=== PATIENT | female | born 1995 | race African-American/Black ===

== ENCOUNTER 2017-10-28 01:06 | Outpatient (CLI) | payer MEDICAID ==
[2017-10-28 01:36] LABS: APPEARANCE,URINE SLIGHTLY-CLOUDY; BILIRUBIN,URINE NEGATIVE (NEGATIVE); COLOR,URINE STRAW; GLUCOSE, URINE NEGATIVE (NEGATIVE); KETONES,URINE NEGATIVE (NEGATIVE); LEUKOCYTE ESTERASE,URINE LARGE (NEGATIVE); NITRITE,URINE NEGATIVE (NEGATIVE); PROTEIN,URINE NEGATIVE (NEGATIVE); URINE SPECIFIC GRAVITY 1.001; UROBILINOGEN,URINE NEGATIVE mg/dL (<2.0)
[2017-10-28 02:08] LABS: URINE AMPHETAMINES SCREEN NEGATIVE; URINE BARBITURATES SCREEN NEGATIVE; URINE BENZODIAZEPINES SCREEN NEGATIVE; URINE COCAINE SCREEN NEGATIVE; URINE MARIJUANA (THC) SCREEN NEGATIVE; URINE METHADONE SCREEN NEGATIVE; URINE PHENCYCLIDINE SCREEN NEGATIVE
== END 2017-10-28 02:18 | disposition home or self-care (01) ==
LOC: LC 01:06
PROVIDERS: ATTEND Obstetrics & Gynecology
PROC: 4A1HXCZ Monitoring of Products of Conception, Cardiac Rate, External Approach (ICD-10-PCS; principal; 2017-10-28)
DX: O47.1 False labor at or after 37 completed weeks of gestation (principal); Z3A.39 39 weeks gestation of pregnancy
CPT/HCPCS: 59025; 80307; 81005

== ENCOUNTER 2017-10-31 04:59 | Inpatient (IN) | payer MEDICAID ==
--- NOTE | 2017-10-31 05:05 | Non Stress Test Report ---
Non Stress Test Datetime Report Generated by CPN: 10/31/2017 05:05 DEMOGRAPHIC Test Number: 1 EGA NST: 39.3 INDICATION Indication for Study: Ordered by Provider VITAL SIGNS Temperature - NST: 98.4 Pulse - NST: 74 RESP - NST: 16 NBPSYS NST: 106 NBPDIA NST: 59 URINE RESULTS Urine Protein, NST: Negative Urine Ketones - NST: Negative Urine Glucose - NST: Negative Urine Blood - NST: Positive MONITORING Monitor Explained: Monitor Explained; Test Explained; Patient Verbalized Understanding Time on Monitor: 10/28/2017 01:26 Time off Monitor: 10/28/2017 02:09 NST Duration: 43 NST INTERVENTIONS NST Interventions: None Physician Notified NST: Dr. Rodriguez BABY A: [id number] BABY A Movement : Present Contraction Frequency : 2-4 FHR Baseline : 150 Accelerations : 15X15 Decelerations : None Variability : Moderate 6-25bpm NST Review: Meets Criteria for Reactive NST NST Review and Verified By : JuanitaSujey Cerna RN NST Results: Reactive NST REPORT Report Trigger: Send Report
[2017-10-31 06:03] LABS: APPEARANCE,URINE CLEAR; BILIRUBIN,URINE NEGATIVE (NEGATIVE); COLOR,URINE YELLOW; GLUCOSE, URINE NEGATIVE (NEGATIVE); KETONES,URINE NEGATIVE (NEGATIVE); LEUKOCYTE ESTERASE,URINE LARGE (NEGATIVE); NITRITE,URINE NEGATIVE (NEGATIVE); PROTEIN,URINE NEGATIVE (NEGATIVE); URINE SPECIFIC GRAVITY 1.001; UROBILINOGEN,URINE NEGATIVE mg/dL (<2.0)
[2017-10-31] MEDS ORDERED: CEFAZOLIN 2 GM/D5W RTU 2 GM/50 ML RTUPB IV ONE (06:32)
[2017-10-31] MEDS ORDERED: CITRIC ACID/SODIUM CITRATE ORAL SOLN 15 ML UDCUP ONE (06:32)
[2017-10-31 06:33] LABS: URINE AMPHETAMINES SCREEN NEGATIVE; URINE BARBITURATES SCREEN NEGATIVE; URINE BENZODIAZEPINES SCREEN NEGATIVE; URINE COCAINE SCREEN NEGATIVE; URINE MARIJUANA (THC) SCREEN NEGATIVE; URINE METHADONE SCREEN NEGATIVE; URINE PHENCYCLIDINE SCREEN NEGATIVE
[2017-10-31] MEDS ORDERED: MORPHINE SULFATE 10 MG/ML INJ ONE (06:45)
[2017-10-31] MEDS ORDERED: FENTANYL CITRATE INJ/PF 100 MCG/2 ML AMPUL ONE (06:45)
[2017-10-31] MEDS ORDERED: OXYTOCIN 10 UNIT/ML VIAL ONE (06:58)
[2017-10-31] MEDS ORDERED: OXYTOCIN/NORMAL SALINE 20 UNIT/1,000 ML RTUINJ ONE (06:58)
[2017-10-31] MEDS ORDERED: METHYLERGONOVINE MALEATE INJ/PF 0.2 MG/1 ML AMPULE ONE (06:58)
[2017-10-31] MEDS ORDERED: MISOPROSTOL 0.2 MG TABLET ONE (06:58)
[2017-10-31] MEDS ORDERED: PROMETHAZINE HCL INJ 25 MG/1 ML VIAL IV PRN ×2 (07:00→07:08)
[2017-10-31] MEDS ORDERED: DIPHENHYDRAMINE HCL 50 MG/ML VIAL IV PRN (07:00)
[2017-10-31] MEDS ORDERED: ONDANSETRON HCL INJ/PF 4 MG/2 ML SDV IV PRN (07:00)
[2017-10-31] MEDS ORDERED: MEPERIDINE HCL/PF INJ 25 MG/1 ML DISP.SYRIN IV PRN (07:00)
[2017-10-31] MEDS ORDERED: MORPHINE SULFATE 10 MG/ML INJ IV PRN (07:00)
[2017-10-31] MEDS ORDERED: FENTANYL CITRATE INJ/PF 100 MCG/2 ML AMPUL IV PRN ×3 (07:00)
[2017-10-31] MEDS ORDERED: OXYTOCIN/NORMAL SALINE 20 UNIT/1,000 ML RTUINJ IV PRN (07:08)
[2017-10-31] MEDS ORDERED: DIPH/PERTUSS(ACELL)/TETANUS VAC/PF 0.5 ML SYR (>=10YO) IM PRN (07:08)
[2017-10-31] MEDS ORDERED: ACETAMINOPHEN 325 MG TABLET PO PRN (07:08)
[2017-10-31] MEDS ORDERED: MEASLES,MUMPS&RUBELLA VACC/PF 0.5 ML VIAL SUBCUT PRN (07:08)
[2017-10-31] MEDS ORDERED: HYDROMORPHONE HCL INJ/PF 2 MG/ML AMPULE IV PRN (07:08)
[2017-10-31] MEDS ORDERED: OXYCODONE-ACETAMINOPHEN 5-325 MG TABLET PO PRN (07:08)
[2017-10-31] MEDS ORDERED: SIMETHICONE 80 MG TAB.CHEW PO PRN (07:08)
--- NOTE | 2017-10-31 07:24 | OPERATIVE REPORT E ---
Operative Report NAME: YISEL OROZCO : 1995 AGE: 22Y DATE OF SURGERY: 10/31/2017 ROOM: LR200 PREOPERATIVE DIAGNOSES: 1. IUP AT TERM. 2. VAGINAL BLEEDING. 3. SUSPECTED ABRUPTIO PLACENTAE. POSTOPERATIVE DIAGNOSES: 1. IUP AT TERM. 2. VAGINAL BLEEDING. 3. SUSPECTED ABRUPTIO PLACENTAE. 4. NUCHAL CORD X1 AND BODY CORD X1. OPERATION: Primary low-transverse section. Delivery of viable female. Apgars of 8 and 9. Weight 6 pounds 8 ounces. SURGEON: Norma LEVINE M.D. ANESTHESIA: General. TISSUE REMOVED OR ALTERED: Placenta. PROCEDURE: The patient was placed in a supine position, prepped and draped. The Pfannenstiel incision was made; incision through the subcutaneous tissue and fascia *------*. The fascia was sharply and bluntly divided. Rectus muscles were bluntly and sharply divided. Parietal peritoneum was entered with sharp dissection. Uterus was nicked in the midline and extended bilaterally. Infant was then delivered through *------* incision, noted to have a cord around its body and around the neck. Cord was reduced and clamped and the baby was passed from the table. Placenta was manually extracted. Uterus closed in 2 layers: the first a running stitch 0 Vicryl; and the second, a Lembert stitch imbricating the first layer. Hemostasis was noted. The fascia was closed with 0 Vicryl and the skin was closed with subcu absorbable delaney. to [facility] in good condition. Patient had an x-ray that showed no foreign bodies and was taken to recovery room in good condition and urine remained clear throughout the procedure. DICTATING PHYSICIAN: Norma LEVINE M.D. [id number] PHY#: [id number] ID: [id number] JOB#: [id number] ACCT: [id number] cc:Norma LEVINE M.D. >
[2017-10-31] MEDS ORDERED: PROPOFOL INJ 200 MG/20 ML VIAL IV ONE (07:34)
[2017-10-31] MEDS ORDERED: ACETAMINOPHEN 100 ML IV ONE (07:41)
[2017-10-31 08:11] LABS: ABSOLUTE EOSINOPHILS # (AUTO) 0.1 10^3/uL (0.0-0.6); ABSOLUTE LYMPHOCYTES (AUTO) 2.5 10^3/uL (0.5-4.7); ABSOLUTE NEUT (AUTO) 8.3 10^3/uL (1.7-8.2); BASOPHILS % (AUTO) 0.3 % (0-2); EOSINOPHILS % (AUTO) 0.9 % (0-6); HEMATOCRIT 34.9 % (36.0-47.0); HEMOGLOBIN 11.5 g/dL (12.0-15.5); LYMPHOCYTES % (AUTO) 20.9 % (13-45); MEAN CORPUSCULAR HEMOGLOBIN 25.5 pg (27.0-33.4); MEAN CORPUSCULAR VOLUME 77 fl (80-97); MONOCYTES % (AUTO) 8.6 % (3-13); PLATELET COUNT 236 10^3/uL (150-450); RED BLOOD COUNT 4.52 10^6/uL (3.72-5.28); RED CELL DISTRIBUTION WIDTH 13.8 % (11.5-14.0); SEGMENTED NEUTROPHILS % (AUTO) 69.3 % (42-78); TOTAL CELLS COUNTED % (AUTO) 100 %
--- NOTE | 2017-10-31 08:12 | RADIOLOGY REPORT (SQ) ---
EXAM DESCRIPTION: KUB/ABDOMEN (SINGLE VIEW) COMPLETED DATE/TIME: 10/31/2017 7:33 am REASON FOR STUDY: stat c/s COMPARISON: None. NUMBER OF VIEWS: One view. TECHNIQUE: Supine radiographic image of the abdomen acquired. LIMITATIONS: None. FINDINGS: BOWEL GAS PATTERN: Nonspecific bowel-gas pattern. SOFT TISSUES: No gross mass or suggestion of organomegaly. No radiopaque foreign body. HARDWARE: No retained instruments seen. OTHER: Density in pelvis compatible with uterus. Vann catheter in bladder. No radiopaq ue densities to suggest retained sponge noted. Radiopaque tubing overlying left abdomen represent flores ction tubing by history. IMPRESSION: Nonspecific bowel-gas pattern. uterus. Vann catheter in place. TECHNICAL DOCUMENTATION: JOB ID: [id number] [employer]- All Rights Reserved
[2017-10-31] MEDS ORDERED: HYDROMORPHONE HCL INJ/PF 2 MG/ML AMPULE ONE (08:35)
--- NOTE | 2017-10-31 09:46 | Admission Physical ---
Datetime Report Generated by CPN: 10/31/2017 09:45 CURRENT ADMISSION Chief Complaint: Vaginal Bleeding Indication for Induction: Not Applicable Indication for Induction: Term, Intrauterine Admit Plan: Initiate Section Protocol ALLERGIES Medication Allergies: No Medication Allergies: No Known Allergies (10/31/2017) Medication Allergies: No Known Allergies (10/28/2017) Medication Allergies: No Known Allergies (07/21/2017) Latex: No Latex Allergies Food Allergies: None Environmental Allergies: None OBSTETRICAL HISTORY EDC: 11/01/2017 00:00 : 2 Para: 0 Term: 0 : 0 SAB: 0 IAB: 1 Livin Gestational Diabetes: No Rh Sensitization: No Incompetent Cervix: No TOMASZ: No Infertility: No ART Treatment: No Uterine Anomaly: No IUGR: No Hx Previous C/S: No Macrosomia: No Hx Loss/Stillborn: No Hx : No Placenta Previa/Abruption: No Depression/PP Depression: No PTL/PROM: No Post Hemorrhage: No Current Procedures: Ultrasound Obstetrical History Comments: g1-EAB at 17 weeks uterine aspiration g2-current SEE RECORDS Alcohol: No Marijuana : No Cocaine: No Other Illicit Drugs: No Cigarettes: Never Smoker. [id number] MEDICAL HISTORY Diabetes: No Blood Transfusion: No Pulmonary Disease (Asthma, TB): No Breast Disease: No Hypertension: No Medical Front Desk Coordinator Surgery: No Heart Disease: No Hosp/Surgery: Yes Autoimmune Disorder: No Anesthetic Complications: No Kidney Disease: No Abnormal Pap Smear: No Neuro/Epilepsy: No Psychiatric Disorders: No Other Medical Diseases: No Hepatitis/Liver Disease: No Significant Family History: No Varicosities/Phlebitis: No Trauma/Violence : No Thyroid Dysfunction: No Medical History Comments: underweight, surgery on bone around left eye INFECTIOUS HISTORY Gonorrhea: No Genital Herpes: No Chlamydia: No Tuberculosis: No Syphilis: No Hepatitis: No HIV/AIDS Exposure: No Rash or Viral Illness: No HPV: No PHYSICAL EXAM General: Normal HEENT: Normal Neurologic: Normal Thyroid: Normal Heart: Normal Lungs: Normal Breast: Deferred Back: Normal Abdomen: Normal Genitourinary Exam: Normal Extremities: Normal DTRs: Normal Pelvic Type: Adequate FETUS A EGA: 39.6 Monitoring: External US Admit Comment: pt had spontaneous continuous vaginal bleeding with class three tracing, suspect abrutio placenta and emergency preformed PLANS FOR LABOR AND DELIVERY Labor and Delivery: None Pain Management: Natural Feeding Preference: Both Benefit of Breast Feed Discussed: Yes Circumcision: N/A INFORMED CONSENT Signature: with User ID: [email or web address]
[2017-10-31] MEDS ORDERED: (PENDING PHARMACY ID) (Prenatal Vit/Iron Fum/Folic Ac [Prenatal Tablet] 1 TAB) PO SCH (10:00)
[2017-10-31] MEDS: DOCUSATE SODIUM 100 MG CAPSULE PO SCH ×2 (10:47→17:29)
[2017-10-31] MEDS: PRENATAL VITAMIN W DHA CAPSULE PO SCH (10:47)
[2017-10-31] MEDS ORDERED: SUCCINYLCHOLINE CHLORIDE INJ 200 MG/10 ML VIAL ONE (11:10)
[2017-10-31] MEDS ORDERED: ONDANSETRON HCL INJ/PF 4 MG/2 ML SDV IV ONE (11:30)
[2017-10-31] MEDS: KETOROLAC TROMETHAMINE INJ/PF 30 MG/1 ML SDV IV SCH ×2 (14:15→21:43)
[2017-11-01] MEDS: KETOROLAC TROMETHAMINE INJ/PF 30 MG/1 ML SDV IV SCH (06:06)
[2017-11-01 07:00] LABS: HEMATOCRIT 31.2 % (36.0-47.0); HEMOGLOBIN 10.3 g/dL (12.0-15.5); MEAN CORPUSCULAR HEMOGLOBIN 25.2 pg (27.0-33.4); MEAN CORPUSCULAR HGB CONC 32.9 g/dL (32.0-36.0); MEAN CORPUSCULAR VOLUME 77 fl (80-97); PLATELET COUNT 223 10^3/uL (150-450); RED BLOOD COUNT 4.08 10^6/uL (3.72-5.28); RED CELL DISTRIBUTION WIDTH 14.4 % (11.5-14.0); WHITE BLOOD COUNT 15.1 10^3/uL (4.0-10.5)
[2017-11-01] MEDS: DOCUSATE SODIUM 100 MG CAPSULE PO SCH ×2 (10:01→17:26)
[2017-11-01] MEDS: PRENATAL VITAMIN W DHA CAPSULE PO SCH (10:02)
--- NOTE | 2017-11-01 11:49 | PDOC PROGRESS REPORT ---
Subjective-OB Progress Note for:: 11/01/17 Subjective: Post-op Day #1 Primary c/s Pt is tolerating diet, voiding without difficult, pain well controlled, passing gas, lochia is stable. Physical Exam (OB) Vital Signs: Temp Pulse Resp BP Pulse Ox 97.9 F 87 14 102/59 L 99 11/01/17 07:53 11/01/17 07:53 11/01/17 07:53 11/01/17 07:53 11/01/17 07:53 Intake & Output 10/31/17 11/01/17 11/02/17 06:59 06:59 06:59 Intake Total 1750 Output Total 2300 Balance -550 Weight 64 kg - PIH/Pre-Eclampsia DTR's: 1 + Clonus: Negative Headache: Absent Epigastric Pain: No Visual Changes: No - Dressing Removed: No Incision: Dressing - Bilateral Tubal Ligation Dressing Removed: No Site: Dressing - Lochia Lochia Amount: Scant < 10 ml Lochia Color: Rubra/Red - Abdomen Description: Tender, Soft Hernia Present: No Fundal Description: Firm Fundal Height: u/3 - u/4 Objective-Diagnostic Laboratory: 11/01/17 06:45 11/01/17 06:45 WBC 15.1 H RBC 4.08 Hgb 10.3 L Hct 31.2 L MCV 77 L MCH 25.2 L MCHC 32.9 RDW 14.4 H Plt Count 223
[2017-11-01] MEDS: IBUPROFEN 800 MG TABLET PO SCH ×2 (11:58→17:26)
[2017-11-01] MEDS: OXYCODONE-ACETAMINOPHEN 5-325 MG TABLET PO PRN (17:30)
--- NOTE | 2017-11-01 18:47 | Delivery Summary ---
Del Sum A-C Datetime Report Generated by CPN: 11/01/2017 18:47 DELIVERY PERSONNEL DELIVERY PERSONNEL: [id number] Delivery Doctor:: Reji Gallo MD Anesthesiologist:: Dev Moore MD Labor and Delivery Nurse:: Demetra Cerna RN Labor and Delivery Nurse:: Trinh Plata RN Neonatal Nurse Practitioner:: VALENTINE Calderon Nursery Nurse:: Roxie Garcia RN Underwater Welder/VARNISHING UNIT OPERATOR: ST Kyra Underwater Welder/VARNISHING UNIT OPERATOR: Samson Holbrook, ORE MINER BLASTING MATERNAL INFORMATION Delivery Anesthesia: General Medications After Delivery: Pitocin Drip 20 Units/1000ml NSS Meds After Delivery Comment: pitocin 20 units in 1000 mL NSS after delivery of placenta Maternal Complications: Abruptio Placenta Provider Comments: female nuchal and body cord apgars 8/9 LABOR SUMMARY EDC: 11/01/2017 00:00 No. Babies in Womb: 1 Attempted: No LABOR INFORMATION Reason for Induction: Not Applicable Group B Beta Strep: neg MEMBRANES Membranes Rupture Method: Spontaneous Rupture of Membranes: 10/31/2017 06:42 Length of Rupture (hr): 0.02 Amniotic Fluid Color: Clear Amniotic Fluid Amount: Small STAGES OF LABOR Stage 3 hr: 0 Stage 3 min: 1 VAGINAL DELIVERY Laceration Extension #1: N/A Laceration Repair: Not Applicable Sponge Count Correct: N/A Sharps Count Correct: N/A CSECTION DELIVERY Primary Indication: Abruptio Placenta CSection Urgency: Emergency CSection Incidence: Primary Labor: Labor Elective: Nonelective CSection Incision: Lower Uterine Transverse BABY A INFORMATION Infant Delivery Date/Time: 10/31/2017 06:43 Method of Delivery: Born in Route : No : N/A Forceps: N/A Vacuum Extraction: N/A Shoulder Dystocia : No PRESENTATION/POSITION BABY A Presentation: Cephalic Cephalic Presentation: Vertex PLACENTA INFORMATION BABY A Placenta Delivery Time : 10/31/2017 06:44 Placenta Method of Delivery: Manual Removal Placenta Status: Delivered SCORES BABY A Heart Rate 1 min: >100 bpm Resp Effort 1 min: Good Cry Reflex Irritability 1 min: Cough or Sneeze or Pulls Away Muscle Tone 1 min: Active Motion Color 1 min: Body [place], Extremities Blue SCORE 1 MIN: 9 Heart Rate 5 min: >100 bpm Resp Effort 5 min: Good Cry Reflex Irritability 5 min: Cough or Sneeze or Pulls Away Muscle Tone 5 min: Active Motion Color 5 min: Body [place], Extremities Blue SCORE 5 MIN: 9 INFORMATION BABY A Gestational Age at Delivery: 39.6 Gestational Status: Full Term- 39- 40.6 Weeks Infant Outcome : Liveborn Infant Condition : Stable Infant Sex: Female IDENTIFICATION BABY A Infant Verification Date/Time: 10/31/2017 07:14 ID Band Number: [id number] Mother's Name Verified: Yes Infant RN Verifying Infant: Amelia Plata RN/ S Lattibeaudeir RN WEIGHT/LENGTH BABY A Infant Birthweight (gm): 2960 Infant Weight (lb): 6 Weight (oz): 8 Infant Length (in): 19.50 Length (cm): 49.53 CORD INFORMATION BABY A No. Cord Vessels: 3 Nuchal Cord : Around Neck x1, Tight Nuchal Cord- Other: body cord x1 Cord Blood Taken: Yes-For Eval (Mom's Blood Type - or O+) Suction: None ASSESSMENT BABY A Infant Complications: Decreased Variability Physical Findings at Delivery: Within Normal Limits Infant Respirations: Appears Normal Skin to Skin: Yes Skin to Skin Time (min): 10 Wireless Sales Expert/ALS Called : No Infant Care By: VALENTINE Clemons RN Transferred To: Nursery SIGNATURES Signature: with User ID: [email or web address]
[2017-11-02] MEDS: IBUPROFEN 800 MG TABLET PO SCH ×2 (00:53→05:41)
[2017-11-02] MEDS: OXYCODONE-ACETAMINOPHEN 5-325 MG TABLET PO PRN (05:46)
--- NOTE | 2017-11-02 08:51 | PDOC DISCHARGE SUMMARY ---
Final Diagnosis Discharge Date: 11/02/17 - Final Diagnosis (1) Acute blood loss anemia Is this a current diagnosis for this admission?: Yes (2) Delivery by emergency section Is this a current diagnosis for this admission?: Yes (3) Non-reassuring electronic monitoring tracing Is this a current diagnosis for this admission?: Yes (4) Vaginal bleeding in Is this a current diagnosis for this admission?: Yes Discharge Data - Discharge Medication Prescriptions: Oxycodone HCl/Acetaminophen [Percocet 5-325 mg Tablet] 2 tab PO Q4HP PRN #30 tablet PRN Reason: Docusate Sodium [Colace 100 mg Capsule] 100 mg PO BID #60 capsule Ibuprofen [Motrin 800 mg Tablet] 800 mg PO Q6 #60 tablet Home Medications: Vit/Iron Fum/Folic AC [ Tablet] 1 tab PO DAILY 07/21/17 Docusate Sodium [Colace 100 mg Capsule] 100 mg PO BID #60 capsule 11/02/17 Ibuprofen [Motrin 800 mg Tablet] 800 mg PO Q6 #60 tablet 11/02/17 Oxycodone HCl/Acetaminophen [Percocet 5-325 mg Tablet] 2 tab PO Q4HP PRN #30 tablet 11/02/17 Gestational Age: 39.6 Reason(s) for Admission: Onset of Labor, Other - abruption Procedures: NST Intrapartum Procedure(s): Spontaneous Vaginal Delivery - Sylvester Data Baby 1 Female at 1 minute: 9 at 5 minutes: 9 Weight: 2960 kg Home with Mother: Yes Complications: No - Diagnosis Test Laboratory: Temp Pulse Resp BP Pulse Ox 98.2 F 94 14 103/58 L 99 11/02/17 05:42 11/02/17 05:42 11/02/17 05:42 11/02/17 05:42 11/02/17 05:42 10/31/17 10/31/17 11/01/17 05:20 07:09 06:45 RBC 4.52 4.08 Hgb 11.5 L 10.3 L Hct 34.9 L 31.2 L Urine Opiates Screen NEGATIVE - Discharge information/Instructions Discharge Activity: Activity As Tolerated, Pelvic Rest, No tub bath Discharge Diet: Regular Disposition: HOME, SELF-CARE Follow up with: [facility] in: 1, Weeks
[2017-11-02] MEDS: PRENATAL VITAMIN W DHA CAPSULE PO SCH (09:46)
[2017-11-02] MEDS: DOCUSATE SODIUM 100 MG CAPSULE PO SCH (09:46)
[2017-11-02 10:30] VITALS: BP 95/52
== END 2017-11-02 12:20 | disposition home or self-care (01) | DRG 765 ==
LOC: LC 04:59 → LR 06:32 → 2S 09:44
PROVIDERS: ADMIT Obstetrics & Gynecology Gynecology; ATTEND Obstetrics & Gynecology Gynecology
PROC: 10D00Z1 Extraction of Products of Conception, Low, Open Approach (ICD-10-PCS; principal; 2017-10-31)
PROC: 4A1HXCZ Monitoring of Products of Conception, Cardiac Rate, External Approach (ICD-10-PCS; 2017-10-31)
DX: O76 Abnormality in fetal heart rate and rhythm complicating labor and delivery (principal); O45.93 Premature separation of placenta, unspecified, third trimester; D62 Acute posthemorrhagic anemia; O69.1XX0 Labor and delivery complicated by cord around neck, with compression, not applicable or unspecified; O99.02 Anemia complicating childbirth; Z3A.39 39 weeks gestation of pregnancy; Z37.0 Single live birth
CPT/HCPCS: 1961; 36415; 74018; 80307; 81005; 85025; 85027; 86592; 86850; 86900; 86901; 88307; 94799; J0131; J0330; J0690; J1170; J1885; J2210; J2270; J2405; J2590; J2704; J3010; J3490